=== PATIENT | male | born 1970 | race Caucasian/White ===

== ENCOUNTER 2018-11-05 11:15 | Observation (INO) ==
--- NOTE | 2018-11-05 11:37 | Emergency Department Note ---
ED Disposition Clinical Impression: Abdominal pain Disposition: Admitted as Observation Condition on Discharge: Fair Instructions: DI for Acute Abdomen Referrals: Provider,MD Gala [Primary Care Provider] - Donnie Lange MD [Staff Physician] - Eugenio Kwan MD [Staff Physician] - Time of Disposition: 14:26 - Critical Care Critical Care Time: No Attestation: On 11/05/18, the high probability of a clinically significant, sudden or life threatening deterioration of the following system(s) required my full and direct attention, intervention and personal management. The time I documented below is in addition to time spent performing reported procedures but includes the following listed in this critical care notation. Medical Decision Making - Medical Records Medical records reviewed: Yes: I reviewed the patient's medical records. - [place] Inquiry Pt receiving controlled substance: No Vital Signs: 11/05/18 11:16 11/05/18 12:02 Temperature 98.3 F Temperature Source Oral Pulse Rate [Right Brachial] 86 86 Respiratory Rate 21 Blood Pressure [Right Arm] 133/79 128/80 Blood Pressure Mean [Right Arm] 97 96 Blood Pressure Source [Right Arm] Automatic Cuff Automatic Cuff Blood Pressure Position [Right Arm] Supine Left Lateral 02 Sat by Pulse Oximetry 99 97 Oxygen Delivery Method Room Air Nasal Cannula - Lab Data Lab results reviewed: Yes: I reviewed the patient's lab results. Lab Results 11/05/18 11:35: WBC 11.5 H, RBC 4.97, Hgb 15.8, Hct 48.0, MCV 96.5 H, MCH 31.9 H , MCHC 33.0, RDW 13.5, Plt Count 237, MPV 7.7, Neut % (Auto) 69.9, Lymph % (Auto) 24.1, [place] % (Auto) 5.0, Eos % (Auto) 0.6, Baso % (Auto) 0.5, Neut # (Auto) 8.0 H, Lymph # (Auto) 2.8, [place] # (Auto) 0.6, Eos # (Auto) 0.1, Baso # (Auto) 0.1 11/05/18 11:35: Sodium 138, Potassium 3.7, Chloride 100, Carbon Dioxide 29, Anion Gap 8.7, BUN 14, Creatinine 1.03, Estimated Creat Clear 91, Estimated GFR 77, Est GFR ( Amer) 94, Glucose 117 H, Calcium 9.5, Troponin I < 0.02 11/05/18 11:35: Amylase 50 11/05/18 11:35: Lipase 94 11/05/18 11:35: Total Bilirubin 0.4, Direct Bilirubin 0.1, Indirect Bilirubin 0.3, AST 17, ALT 28, Alkaline Phosphatase 74, Total Protein 7.5, Albumin 4.3 Result diagrams: 11/05/18 11:35 11/05/18 11:35 Orders (Tests/Meds): ED MEDICATIONS Discontinued Medications Generic Name Dose Route Start Last Admin Trade Name Marisa PRN Reason Stop Dose Admin Iopamidol 75 ml 11/05/18 12:40 11/05/18 12:41 [id number]; 75ml Vial IV 11/05/18 12:41 75 ml ONCE ONE Administration Protocol Ketorolac Tromethamine 30 mg 11/05/18 11:27 11/05/18 11:50 Toradol 30mg/Ml Vial IV 11/05/18 11:28 30 mg ONCE ONE Administration Lorazepam 2 mg 11/05/18 11:27 11/05/18 11:50 Ativan 2mg/Ml Vial IV 11/05/18 11:28 2 mg ONCE ONE Administration Pantoprazole Sodium 40 mg 11/05/18 11:28 11/05/18 11:50 Protonix 40mg Vial IV 11/05/18 11:29 40 mg ONCE ONE Administration Sodium Chloride 8 ml 11/05/18 11:28 11/05/18 11:50 Saline Flush 10ml Syringe IV 11/05/18 11:29 8 ml ONCE ONE Administration Sodium Chloride 10 ml 11/05/18 12:40 11/05/18 12:41 Rad-Saline Flush 10ml Syringe IV 11/05/18 12:41 10 ml ONCE ONE Administration ORDERS Category Date Time Status UA [Urinalysis and Microscopic] Stat Lab 11/05/18 11:26 Ordered - ECG Data Tracing #1 Normal sinus rhythm heart rate 97 significant artifact axis 79 possible right atrial enlargement no previous EKG performed 1120 ECG initial impression date: 11/05/18 ECG initial impression time: 11:20 Normal Sinus Rhythm: Yes - Reevaluation(s) Time: 13:05 Reevaluation #1: Patient's pain significantly improved with Toradol laboratory studies unremarka ble CT scan of the abdomen shows anatomical abnormalities of the vessels but no acute ischemic bowel Medical Decision Narrative: Differential diagnosis is ventral hernia, pancreatitis, cholecystitis renal colic, bowel obstruction, aortic dissection Patient reevaluated at 1330 with significant improvement in pain CAT scan of the abdomen with contrast reveals no acute process however 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 Schulz and with the surgeon on-call who will come and see the patient. Patient discussed with Dr. Kwan who recommended admission for observation for 24 hours clear liquid fluids no acute intervention indicated patient will be admitted to Dr. Lange General Adult HPI - General Chief complaint: Abdominal Pain Stated complaint: chest pain Time Seen by Provider: 11/05/18 11:20 Mode of Arrival: Ambulatory Source of Information: Patient, Spouse Limitations: No Limitations - History of Present Illness HPI narrative: Patient complains of acute epigastric pain starting at 4:00 this morning and getting progressively worse pain is constant sharp and is not alleviated by laying still or by movement it can be reproduced by touching the epigastric area. Patient drinks occasionally no history of gallbladder disease gastritis hernias. No history of trauma heavy lifting or previous history. Patient had history of spontaneous pneumothorax in the past Onset (ago): hour(s) (7) Radiation: non-radiation Severity scale (1-10): 8 Quality: sharp - Related Data Home Medications Medication Instructions Recorded Confirmed No Known Home Medications 11/05/18 11/05/18 Allergies Allergy/AdvReac Type Severity Reaction Status Date / Time No Known Allergies Allergy Verified 11/05/18 11:42 [facility] History - Hepatitis A Screen Drug use history?: No High risk sexual behaviors?: No History of sexually transmitted infection?: No Currently employed?: Yes Do you have electricity?: Yes Does patient agree to Hepatitis A vaccine administration?: No Attestation statement:: This patient has been screened for Hepatitis A risk factors. I have reviewed the patient's past medical history: Yes Comment: Right-sided pneumothorax spontaneous Amputation: No ROS Obtained: Yes All systems reviewed & no additional complaints Physical Exam - General General appearance: alert, anxious, in distress (Marked epigastric pain patient cannot get comfortable) - Head Head exam: atraumatic, normocephalic, normal inspection - Eye Eye exam: Present: normal appearance, PERRL, EOMI - ENT ENT exam: Present: normal exam, normal oropharynx, mucous membranes moist, TM's normal bilaterally, normal external ear exam - Neck Neck exam: Present: normal inspection, full ROM, trachea midline. Absent: meningismus, lymphadenopathy - Chest Chest inspection: Present: normal inspection, symmetric chest wall rise. Absent: tenderness - Respiratory Respiratory exam: Present: normal lung sounds bilaterally. Absent: respiratory distress - Cardiovascular Cardiovascular exam: Present: regular rate, normal rhythm. Absent: JVD - Abdominal Exam Abdominal exam: Present: soft, tenderness, guarding, normal bowel sounds. Absent: distention, rebound, rigidity (Exquisite tenderness over epigastrium midline over the linea alba possible ventral hernia palpated pain reproduced by palpation of the abdominal wall) Abdominal tenderness: Present: epigastrium - Extremities Exam Extremities exam: Present: normal inspection, full ROM, normal capillary refill. Absent: calf tenderness - Back Exam Back exam: Present: normal inspection. Absent: tenderness - Neurological Exam Neurological exam: Present: alert, oriented X3 - Psychiatric Psychiatric exam: Present: normal affect, normal mood - Skin Skin exam: Present: warm, dry, intact, normal color - Lymphatic Lymphatic Findings: no adenopathy
[2018-11-05 11:51] LABS: Basophils # 0.1 K/mm3 (0-0.2); Basophils % 0.5 % (0.1-2.0); Eosinophils # 0.1 K/mm3 (0.0-0.4); Eosinophils % 0.6 % (0.1-12.0); Hemoglobin 15.8 g/dL (14.1-18.0); Lymphocytes # 2.8 K/mm3 (0.7-4.5); Lymphocytes % 24.1 % (10-50); Mean Corpuscular Hemoglobin 31.9 pg (27.0-31.2); Mean Corpuscular Volume 96.5 fl (80-94); Mean Platelet Volume 7.7 fl (7.4-10.4); Monocytes # 0.6 K/mm3 (0.1-1.0); Neutrophils % 69.9 % (37.0-80.0); Platelet Count 237 K/mm3 (142-424); Red Blood Count 4.97 M/mm3 (4.60-6.20); Red Cell Distribution Width 13.5 % (11.5-17.5); White Blood Count 11.5 K/mm3 (4.8-10.8)
[2018-11-05 12:01] LABS: Anion Gap 8.7 mEq/L (5-15); Blood Urea Nitrogen 14 mg/dL (7-18); Carbon Dioxide 29 mmol/L (21.0-32.0); Chloride 100 mmol/L (98-107); Potassium 3.7 mmoL/L (3.5-5.1); Sodium 138 mmol/L (136-145)
[2018-11-05 12:02] LABS: Albumin Level 4.3 gm/dL (3.4-5.0); Bilirubin,Direct 0.1 mg/dL (0.0-0.2); Bilirubin,Indirect 0.3 mg/dL (0.0-0.9); Bilirubin,Total 0.4 mg/dL (0.2-1.0); Calcium 9.5 mg/dL (8.5-10.1); Glucose 117 mg/dL (74-106); Total Protein,Serum 7.5 gm/dL (6.4-8.2)
[2018-11-05 14:45] LABS: Microscopic, Urine URINE MICROSCOPIC (MICROSCOPIC)
[2018-11-05 14:48] LABS: Appearance,Urine CLEAR (Clear); Bilirubin,Urine Negative (Negative); Blood, Urine Negative (Negative); Color,Urine YELLOW (Yellow); Glucose,Urine (UA) Negative (Negative); Ketones,Urine Negative (Negative); Leukocyte Esterase,Urine Negative (Negative); Protein,Urine Negative (Negative); Specific Gravity, Urine <= 1.005 (1.005-1.030); Urobilinogen,Urine 0.2 EU/dl (0.2)
[2018-11-05 14:57] LABS: Squamous Epithelial Cell,Urine Occasional #/hpf (0-5)
--- NOTE | 2018-11-05 15:12 | Consult Report ---
*Admission Date: 11/05/18 *Chief complaint: Abdominal pain *History of present illness: Patient is a 48-year-old white male. He states that he was in his usual state of health until early this morning around 4 or 5 AM at which time he developed severe epigastric pain. It became quite severe. He had no other associated symptoms. His symptoms seem to be worse with certain movement. When he presented to the emergency department due to severity of the pain initially there was concern for quite severe pathology. He did undergo CT scan with intravenous contrast. 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 There is no evidence of any mesenteric ischemia noted radiographically. Due to the severity of the pain findings on CT scan general surgery was asked to evaluate the patient. Review of Systems - Review of Systems Review of systems:: pertinent systems reviewed and negative unless documented below [facility] History Medical History: Denies:: Cancer, Diabetes Mellitus Type 1, Diabetes Mellitus Type 2 Have you received a flu vaccine this season?: No Laterality Cases: Left: Other Amputation: No - *Social History Smoking Status: Current every day smoker Tobacco Type: cigarettes # Packs/Day (cigarettes): 1 Alcohol Intake: current Alcohol Intake Frequency:: a few times a month Occupational Status: employed Travel in the last 8 weeks: None - Psychiatric History Expresses thoughts of harming self/others: None Suicide Plan Description: No Plan Meds Home Medications Medication Instructions Recorded Confirmed Type No Known Home Medications 11/05/18 11/05/18 History Allergies Allergy/AdvReac Type Severity Reaction Status Date / Time No Known Allergies Allergy Verified 11/05/18 11:42 Exam Vital signs and Labs for Last 24 Hours: Temp Pulse Resp BP Pulse Ox 98.8 F 90 21 111/61 97 11/05/18 14:51 11/05/18 14:51 11/05/18 11:16 11/05/18 14:51 11/05/18 14:51 Laboratory Results - last 24 hr 11/05/18 11:35: WBC 11.5 H, RBC 4.97, Hgb 15.8, Hct 48.0, MCV 96.5 H, MCH 31.9 H , MCHC 33.0, RDW 13.5, Plt Count 237, MPV 7.7, Neut % (Auto) 69.9, Lymph % (Auto) 24.1, [place] % (Auto) 5.0, Eos % (Auto) 0.6, Baso % (Auto) 0.5, Neut # (Auto) 8.0 H, Lymph # (Auto) 2.8, [place] # (Auto) 0.6, Eos # (Auto) 0.1, Baso # (Auto) 0.1 11/05/18 11:35: Sodium 138, Potassium 3.7, Chloride 100, Carbon Dioxide 29, Anion Gap 8.7, BUN 14, Creatinine 1.03, Estimated Creat Clear 91, Estimated GFR 77, Est GFR ( Amer) 94, Glucose 117 H, Calcium 9.5, Troponin I < 0.02 11/05/18 11:35: Amylase 50 11/05/18 11:35: Lipase 94 11/05/18 11:35: Total Bilirubin 0.4, Direct Bilirubin 0.1, Indirect Bilirubin 0.3, AST 17, ALT 28, Alkaline Phosphatase 74, Total Protein 7.5, Albumin 4.3 11/05/18 14:41: Urine Color Yellow, Urine Appearance Clear, Urine pH 7.0, Ur Specific [place] <= 1.005, Urine Protein Negative, Urine Glucose (UA) Negative, Urine Ketones Negative, Urine Blood Negative, Urine Nitrate Negative, Urine Bilirubin Negative, Urine Urobilinogen 0.2, Ur Leukocyte Esterase Negative, Ur Squamous Epith Cells Occasional I & O for Last 24 hours: Intake & Output 11/03/18 11/04/18 11/05/18 11/06/18 11:59 11:59 11:59 11:59 Weight 160 lb - *Routine HEENT Exam Head: Present: normocephalic Eye: Present: EOMI, PERRL ENT: Present: mucous membranes moist - *Routine Neck Exam Present: supple. Absent: lymphadenopathy - *Routine Respiratory Exam Present: CTA bilaterally - *Routine Cardiovascular Exam Present: RRR - *Routine Abdominal Exam Present: soft, normoactive bowel sounds, tenderness Comments: Very minimal epigastric tenderness without guarding or rebound. - *Routine Extremities Exam Absent: cyanosis, clubbing, edema - *Routine Skin Exam Present: warm. Absent: rash - *Routine Neurological Exam Present: alert, oriented X3 - Detailed Eye Exam Eyelids: Left normal inspection Results - Labs 11/05/18 11:35 11/05/18 11:35 Laboratory Results - last 24 hr 11/05/18 11:35: WBC 11.5 H, RBC 4.97, Hgb 15.8, Hct 48.0, MCV 96.5 H, MCH 31.9 H , MCHC 33.0, RDW 13.5, Plt Count 237, MPV 7.7, Neut % (Auto) 69.9, Lymph % (Auto) 24.1, [place] % (Auto) 5.0, Eos % (Auto) 0.6, Baso % (Auto) 0.5, Neut # ( Auto) 8.0 H, Lymph # (Auto) 2.8, [place] # (Auto) 0.6, Eos # (Auto) 0.1, Baso # (Auto) 0.1 11/05/18 11:35: Sodium 138, Potassium 3.7, Chloride 100, Carbon Dioxide 29, Anion Gap 8.7, BUN 14, Creatinine 1.03, Estimated Creat Clear 91, Estimated GFR 77, Est GFR ( Amer) 94, Glucose 117 H, Calcium 9.5, Troponin I < 0.02 11/05/18 11:35: Amylase 50 11/05/18 11:35: Lipase 94 11/05/18 11:35: Total Bilirubin 0.4, Direct Bilirubin 0.1, Indirect Bilirubin 0.3, AST 17, ALT 28, Alkaline Phosphatase 74, Total Protein 7.5, Albumin 4.3 11/05/18 14:41: Urine Color Yellow, Urine Appearance Clear, Urine pH 7.0, Ur Specific [place] <= 1.005, Urine Protein Negative, Urine Glucose (UA) Negative, Urine Ketones Negative, Urine Blood Negative, Urine Nitrate Negative, Urine Bilirubin Negative, Urine Urobilinogen 0.2, Ur Leukocyte Esterase Negative, Ur Squamous Epith Cells Occasional Assessment and Plan - Assessment and plan all Dx Assessment and Plan for all problems:: I had a long discussion with the patient and his spouse in the emergency department. My suspicion for any acute mesenteric ischemia would be extremely low. I feel more likely that this is an anatomic variant which is a chronic and incidental finding on his CT scan. However, given these findings and given the degree of the pain and tenderness the patient had initially I felt that a viable option may be observation overnight. Patient and his spouse feel more comfortable with this plan as opposed to outpatient management.
--- NOTE | 2018-11-05 17:10 | History & Physical Report ---
*Admission Date: 11/05/18 *Chief complaint: Abdominal pain *History of present illness: 48-year-old male developed epigastric abdominal pain around 5 AM this morning. Patient was able to continue on and go to work. He initially thought he had perhaps pulled a muscle. The pain did not stop him from eating. As his morning progressed the pain intensified until he ultimately presented to the emergency department in the late morning. Currently by the time he arrived to the ER he was in quite severe distress in examination was even difficult. Patient was given Toradol and Ativan in his pain ultimately resolved. A CT scan of the abdomen was performed which showed mild gastric artery and celiac artery narrowing. Surgeon was consulted and recommended overnight observation for recurrence of symptoms. Since admission to the floor patient has been eating and has had no recurrence of pain. He denies use of NSAIDs or smokeless tobacco. He does smoke cigarettes and marijuana. He denies any recent changes in his diet. He denies chest pain, heartburn, nausea, vomiting. When patient had onset of abdominal pain earlier in the morning he attempted to have a bowel movement and made recurrent efforts to belch as he thought these may relieve his pain but those measures were ineffective [facility] History I have reviewed the patient's past medical history: Yes Medical History: Denies:: Cancer, Diabetes Mellitus Type 1, Diabetes Mellitus Type 2, Internal Pacemaker, MRSA Have you ever received a pneumonia vaccine?: No Have you received a flu vaccine this season?: No Laterality Cases: Left: Other Other Surgeries: No: Pacemaker Amputation: No Fractures: No - *Social History Educational Level: Completed [employer] Smoking Status: Current every day smoker Tobacco Type: cigarettes # Packs/Day (cigarettes): 1 #Yrs smoked (if former smoker): 30 Alcohol Intake: current Alcohol Intake Frequency:: holidays/special occasions only Substance Use Type: marijuana Last Used Substance: hours (ago) Occupational Status: employed Travel in the last 8 weeks: None - Psychiatric History Expresses thoughts of harming self/others: None Suicide Plan Description: No Plan Review of Systems - Review of Systems Review of systems:: pertinent systems reviewed and negative unless documented below - Constitutional Denies chills, Denies fever(s) - *Cardiovascular Denies chest pain - *Respiratory Denies change in phlegm color, Denies chest congestion, Denies cough - *Gastrointestinal Reports abdominal pain, Denies belching, Denies bloating, Denies change in bowel habits, Denies change in stools, Denies coffee ground vomit, Denies loose stools, Denies heartburn, Denies difficulty swallowing, Denies feeling full early, Denies excessive passing of gas, Denies incontinent of stools, Denies heartburn, Denies vomiting blood, Denies bright, red blood in stools, Denies loose stools, Denies black, tarry stools, Denies nausea, Denies pain with swallowing, Denies constant urge to pass stool, Denies vomiting - *Genitourinary Denies difficulty urinating - *Neurologic Reports abnormal walking Meds Home Medications Medication Instructions Recorded Confirmed Type No Known Home Medications 11/05/18 11/05/18 History Allergies Allergy/AdvReac Type Severity Reaction Status Date / Time No Known Allergies Allergy Verified 11/05/18 11:42 Exam Vital signs and Labs for Last 24 Hours: Temp Pulse Resp BP Pulse Ox 98.6 F 77 18 117/70 100 11/05/18 16:00 11/05/18 16:00 11/05/18 16:00 11/05/18 16:00 11/05/18 16:56 Laboratory Results - last 24 hr 11/05/18 11:35: WBC 11.5 H, RBC 4.97, Hgb 15.8, Hct 48.0, MCV 96.5 H, MCH 31.9 H , MCHC 33.0, RDW 13.5, Plt Count 237, MPV 7.7, Neut % (Auto) 69.9, Lymph % (Auto) 24.1, [place] % (Auto) 5.0, Eos % (Auto) 0.6, Baso % (Auto) 0.5, Neut # (Auto) 8.0 H, Lymph # (Auto) 2.8, [place] # (Auto) 0.6, Eos # (Auto) 0.1, Baso # (Auto) 0.1 11/05/18 11:35: Sodium 138, Potassium 3.7, Chloride 100, Carbon Dioxide 29, Anion Gap 8.7, BUN 14, Creatinine 1.03, Estimated Creat Clear 91, Estimated GFR 77, Est GFR ( Amer) 94, Glucose 117 H, Calcium 9.5, Troponin I < 0.02 11/05/18 11:35: Amylase 50 11/05/18 11:35: Lipase 94 11/05/18 11:35: Total Bilirubin 0.4, Direct Bilirubin 0.1, Indirect Bilirubin 0.3, AST 17, ALT 28, Alkaline Phosphatase 74, Total Protein 7.5, Albumin 4.3 11/05/18 14:41: Urine Color Yellow, Urine Appearance Clear, Urine pH 7.0, Ur Specific [place] <= 1.005, Urine Protein Negative, Urine Glucose (UA) Negative, Urine Ketones Negative, Urine Blood Negative, Urine Nitrate Negative, Urine Bilirubin Negative, Urine Urobilinogen 0.2, Ur Leukocyte Esterase Negative, Ur Squamous Epith Cells Occasional I & O for Last 24 hours: Intake & Output 11/03/18 11/04/18 11/05/18 11/06/18 11:59 11:59 11:59 11:59 Weight 160 lb 148 lb 3 oz - Constitutional no acute distress - *Routine HEENT Exam Head: Present: normocephalic Eye: Present: PERRL ENT: Present: mucous membranes moist - *Routine Neck Exam Present: supple, full ROM. Absent: JVD, carotid bruit - *Routine Respiratory Exam Present: CTA bilaterally - *Routine Cardiovascular Exam Present: RRR, Normal S1, Normal S2 - *Routine Abdominal Exam Present: soft, normoactive bowel sounds. Absent: tenderness, distended, rebound, guarding, firm, rigid, organomegaly, mass, hernia, bruit, surgical scars, wound, drain, ostomy, [place] Brandt's sign, [place]'s sign - *Routine Extremities Exam Present: full ROM. Absent: edema Assessment and Plan (1) Epigastric abdominal pain Current visit: Yes Status: Acute Category: Medical Code(s): R10.13 - Epigastric pain - Assessment and plan all Dx Assessment and Plan for all problems:: Patient has been admitted for observation and reexamination in the morning. Diet has been ordered.
--- NOTE | 2018-11-06 06:59 | Discharge Summary ---
General - General Admission date:: 11/05/18 Discharge date: 11/06/18 HPI HPI: 48-year-old male developed epigastric abdominal pain around 5 AM this morning. Patient was able to continue on and go to work. He initially thought he had perhaps pulled a muscle. The pain did not stop him from eating. As his morning progressed the pain intensified until he ultimately presented to the emergency department in the late morning. Currently by the time he arrived to the ER he was in quite severe distress in examination was even difficult. Patient was given Toradol and Ativan in his pain ultimately resolved. A CT scan of the abdomen was performed which showed mild gastric artery and celiac artery narrowing. Surgeon was consulted and recommended overnight observation for recurrence of symptoms. Since admission to the floor patient has been eating and has had no recurrence of pain. He denies use of NSAIDs or smokeless tobacco. He does smoke cigarettes and marijuana. He denies any recent changes in his diet. He denies chest pain, heartburn, nausea, vomiting. When patient had onset of abdominal pain earlier in the morning he attempted to have a bowel movement and made recurrent efforts to belch as he thought these may relieve his pain but those measures were ineffective Hospital Course Hospital Course: Patient was admitted for observation. He required no further pain medication nor lorazepam. He ate without recurrence of pain or nausea. Patient slept well and was discharged home on the morning of November 06 patient will follow-up on an as-needed basis. Objective Vital signs: Temp Pulse Resp BP Pulse Ox 99.2 F 81 18 103/56 L 99 11/06/18 04:00 11/06/18 04:00 11/06/18 04:00 11/06/18 04:00 11/06/18 04:00 no acute distress - *Routine Abdominal Exam Present: soft, normoactive bowel sounds. Absent: tenderness Results Labs on day of discharge: Labs from last 24 hours 11/05/18 11/05/18 11/05/18 14:41 11:35 11:35 WBC RBC Hgb Hct MCV MCH MCHC RDW Plt Count MPV Neut % (Auto) Lymph % (Auto) [place] % (Auto) Eos % (Auto) Baso % (Auto) Neut # (Auto) Lymph # (Auto) [place] # (Auto) Eos # (Auto) Baso # (Auto) Sodium Potassium Chloride Carbon Dioxide Anion Gap BUN Creatinine Estimated Creat Clear Estimated GFR Est GFR ( Amer) Glucose Calcium Total Bilirubin 0.4 Direct Bilirubin 0.1 Indirect Bilirubin 0.3 AST 17 ALT 28 Alkaline Phosphatase 74 Troponin I Total Protein 7.5 Albumin 4.3 Amylase Lipase 94 Urine Color Yellow Urine Appearance Clear Urine pH 7.0 Ur Specific [place] <= 1.005 Urine Protein Negative Urine Glucose (UA) Negative Urine Ketones Negative Urine Blood Negative Urine Nitrate Negative Urine Bilirubin Negative Urine Urobilinogen 0.2 Ur Leukocyte Esterase Negative Ur Squamous Epith Cells Occasional 11/05/18 11/05/18 11/05/18 11:35 11:35 11:35 WBC 11.5 H RBC 4.97 Hgb 15.8 Hct 48.0 MCV 96.5 H MCH 31.9 H MCHC 33.0 RDW 13.5 Plt Count 237 MPV 7.7 Neut % (Auto) 69.9 Lymph % (Auto) 24.1 [place] % (Auto) 5.0 Eos % (Auto) 0.6 Baso % (Auto) 0.5 Neut # (Auto) 8.0 H Lymph # (Auto) 2.8 [place] # (Auto) 0.6 Eos # (Auto) 0.1 Baso # (Auto) 0.1 Sodium 138 Potassium 3.7 Chloride 100 Carbon Dioxide 29 Anion Gap 8.7 BUN 14 Creatinine 1.03 Estimated Creat Clear 91 Estimated GFR 77 Est GFR ( Amer) 94 Glucose 117 H Calcium 9.5 Total Bilirubin Direct Bilirubin Indirect Bilirubin AST ALT Alkaline Phosphatase Troponin I < 0.02 Total Protein Albumin Amylase 50 Lipase Urine Color Urine Appearance Urine pH Ur Specific [place] Urine Protein Urine Glucose (UA) Urine Ketones Urine Blood Urine Nitrate Urine Bilirubin Urine Urobilinogen Ur Leukocyte Esterase Ur Squamous Epith Cells DS: Diagnosis - Discharge Diagnosis (1) Epigastric abdominal pain Status: Acute Discharge Plan - Patient Discharge Instructions ACTIVITY: Continue current activity DIET: continue same diet - Follow up Plan Disposition: Home, Self-Shelter Medications: Home Medications Medication Instructions Recorded Confirmed Type No Known Home Medications 11/05/18 11/05/18 History Prescriptions/Medication Reconciliation: No Action No Known Home Medications
--- NOTE | 2018-11-06 07:13 | Pharmacy Consult Notes ---
[facility] Pharmacy VTE Monitoring - Patient Demographics Admission date: 11/05/18 Report Date: 11/06/18 Time: 07:13 Allergies/Adverse Reactions: Patient Allergies No Known Allergies Allergy (Verified 11/05/18 11:42) Height: 1.83 m Weight: 67.217 kg Patient Problems: Current Active Problems Abdominal pain (Acute) Epigastric abdominal pain (Acute) - VTE Risk Labs: VTE Related Lab Results Hgb 15.8 g/dL (14.1-18.0) 11/05/18 11:35 Hct 48.0 % (42.0-52.0) 11/05/18 11:35 Plt Count 237 K/mm3 (142-424) 11/05/18 11:35 BUN 14 mg/dL (7-18) 11/05/18 11:35 Creatinine 1.03 mg/dL (0.70-1.30) 11/05/18 11:35 Estimated Creat Clear 91 mL/min (50-200) 11/05/18 11:35 Was VTE Risk Assessment Performed: Yes VTE Score: 1 VTE Risk Level: Low Risk Clinical Trial Participant: No - Prophylaxis Types of VTE Prophylaxis: TEDS Knee High
--- NOTE | 2018-11-06 07:17 | Progress Note ---
Subjective Patient reports: feels better Narrative: Patient states he is "ready to go home". No pain overnight. Exam Vital signs and Labs for Last 24 Hours: Temp Pulse Resp BP Pulse Ox 99.2 F 81 18 103/56 L 99 11/06/18 04:00 11/06/18 04:00 11/06/18 04:00 11/06/18 04:00 11/06/18 04:00 Laboratory Results - last 24 hr 11/05/18 11:35: WBC 11.5 H, RBC 4.97, Hgb 15.8, Hct 48.0, MCV 96.5 H, MCH 31.9 H , MCHC 33.0, RDW 13.5, Plt Count 237, MPV 7.7, Neut % (Auto) 69.9, Lymph % (Auto) 24.1, [place] % (Auto) 5.0, Eos % (Auto) 0.6, Baso % (Auto) 0.5, Neut # (Auto) 8.0 H, Lymph # (Auto) 2.8, [place] # (Auto) 0.6, Eos # (Auto) 0.1, Baso # (Auto) 0.1 11/05/18 11:35: Sodium 138, Potassium 3.7, Chloride 100, Carbon Dioxide 29, Anion Gap 8.7, BUN 14, Creatinine 1.03, Estimated Creat Clear 91, Estimated GFR 77, Est GFR ( Amer) 94, Glucose 117 H, Calcium 9.5, Troponin I < 0.02 11/05/18 11:35: Amylase 50 11/05/18 11:35: Lipase 94 11/05/18 11:35: Total Bilirubin 0.4, Direct Bilirubin 0.1, Indirect Bilirubin 0.3, AST 17, ALT 28, Alkaline Phosphatase 74, Total Protein 7.5, Albumin 4.3 11/05/18 14:41: Urine Color Yellow, Urine Appearance Clear, Urine pH 7.0, Ur Specific [place] <= 1.005, Urine Protein Negative, Urine Glucose (UA) Negative, Urine Ketones Negative, Urine Blood Negative, Urine Nitrate Negative, Urine Bilirubin Negative, Urine Urobilinogen 0.2, Ur Leukocyte Esterase Negative, Ur Squamous Epith Cells Occasional I & O for Last 24 hours: Intake & Output 11/03/18 11/04/18 11/05/18 11/06/18 11:59 11:59 11:59 11:59 Intake Total 360 / 360 Balance 360 / 360 Weight 160 lb 148 lb 3 oz - Constitutional no acute distress - *Routine Abdominal Exam Present: soft. Absent: tenderness Progress Note: A&P (1) Epigastric abdominal pain Status: Acute Current Visit: Yes Assessment and Plan for All Diagnoses:: Discharge home.
== END 2018-11-06 07:55 | disposition home or self-care (01) ==
LOC: 2ND 11:15 → ER 11:15 → 2ND 15:35
PROVIDERS: ADMIT Family Medicine; ATTEND Family Medicine
CPT/HCPCS: 74160; 80048; 80076; 81001; 82150; 83690; 84484; 85025; 93005; 96374; 96375; 99284; G0378; Q9967

== ENCOUNTER → 2018-11-21 13:32 | Outpatient (CLI) | payer BC, SELFPAY ==
--- NOTE | 2018-11-21 13:47 | XR_ITS ---
EXAM: XR lumbar spine min 4V HISTORY: Left hip and back pain ORDERING PHYSICIAN: Samantha Alcala PATIENT AGE: 48 years COMPARISON: None FINDINGS: Normal alignment. No fracture or dislocation. No lytic or blastic change. No significant degenerative change. The disc spaces are preserved. IMPRESSION: Negative lumbar spine
--- NOTE | 2018-11-21 13:47 | XR_ITS ---
XR hip LT 2-3V w/pelvis HISTORY: Left hip and back pain ORDERING PHYSICIAN: Samantha Alcala PATIENT AGE: 48 years COMPARISON: None FINDINGS: No fracture or dislocation is evident. No significant degenerative change. No lytic or blastic change. Unremarkable soft tissues IMPRESSION: Negative hip
== END ==
PROVIDERS: PCP Family Medicine; Visit Provider Nurse Practitioner
DX: M48.9 Spondylopathy, unspecified (principal)
CPT/HCPCS: 72110; 73502

== ENCOUNTER → 2019-01-29 15:12 | Outpatient (CLI) | payer BC, SELFPAY ==
--- NOTE | 2019-01-29 15:15 | MR_ITS ---
MR hip LT wo con HISTORY: Left hip pain ITS.REASON: LEFT HIP PAIN, INSTABILITY OF LEFT HIP JOINT ORDERING PHYSICIAN: Nolvia Morris APRN PATIENT AGE: 48 years COMPARISON: 11/21/2018 TECHNIQUE: Multiplanar multiecho sequences performed without contrast FINDINGS: No fracture or dislocation. No bone marrow edema of the hip. No hip joint effusion. No significant degenerative change. The soft tissues about the hip have an unremarkable appearance. IMPRESSION: Negative MRI of the left hip
== END ==
PROVIDERS: PCP Nurse Practitioner Family; Visit Provider Nurse Practitioner Family
DX: M25.552 Pain in left hip (principal); M25.352 Other instability, left hip
CPT/HCPCS: 73721

== ENCOUNTER 2019-02-26 08:30 | Outpatient (RCR) | payer BC, SELFPAY ==
--- NOTE | 2019-02-11 11:11 | HMH.PTOPEV ---
PT Outpatient Evaluation Rehab PT Outpatient Evaluation Start: 02/11/19 09:51 Freq: Status: Active Protocol: Document 02/11/19 10:48 SINDY (Rec: 02/11/19 11:11 PHORNE [id number]) Electronically Signed By Ivan Ibrahim, PT 02/11/19 10:48 Outpatient Therapy Subjective History Subjective History Pt is 48 yowm who presents with ~ 4 mos of low back pain and left LE radicular symptoms , fairly constant with no relief from any medications he has been prescribed. He reports ~ 20 yrs of similar episodes of low back pain and radiculopathy, but none this severe. He had X-ray and MRI of left hip which were negative and X-ray of the lumbar spine which was negative. He reports no significant PMH. 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 Chief Complaint Pain Symptom Type Ache,Throb,Sharp,Dull,Stabbing ,Burning,Numbness,Tingling, Shooting Symptoms Relieved By Nothing Symptoms Aggravated By Sitting,Standing,Bending/ Stooping,Physical Activity, Twisting,Walking,Lifting, Sneeze/Coughing Prior Functional Limitations None Current Functional Limitations Lifting,Housework,Dressing, Driving,Sleeping,Standing, Sitting,Recreation Activity, Walking,Bending/Stooping Symptom Description Constant and Continuous Level of pain today (0-10) 10 Pain scale - at its worst (0-10) 10 Lumbopelvic Eval Posture Thoracic Spine Posture Standing Position Neutral Lumbar Spine Posture Standing Position Neutral Palapation tenderness left lumbar spinal tenderness Yes: mild buttock tenderness Yes: severe Lumbar/Sacral Palpation Findings Tenderness,Muscle Guarding Lumbar/Sacral Palpation Overall Comment Pt with extreme reactions to all palpation throughout left SI/buttock area. Accessory Movement L-spine Vertebrae Accessory Movements [facility] [place] that Elicit Symptoms L4 left L5 left S1 left Range of Motion Lumbar Spin
== END 2019-02-26 08:35 | disposition home or self-care (01) ==
LOC: PT 08:30
PROVIDERS: Visit Provider Nurse Practitioner Family
DX: M54.42 Lumbago with sciatica, left side (principal)
CPT/HCPCS: 97010; 97014; 97035; 97110; 97140; 97163; G0283

== ENCOUNTER → 2019-03-11 15:01 | Outpatient (CLI) | payer BC, SELFPAY ==
--- NOTE | 2019-03-11 15:03 | MR_ITS ---
MR lumbar spine wo con, MR 3-d myelogram/MRCP HISTORY: Low back pain X 6 months or longer. LT leg pain, numbness and tingling. Pain has been severe X 2 months. No known injury. ITS.REASON: ACUTE LEFT-SIDED BACK PAIN WITH SCIATICA, UNABLE TO WALK ORDERING PHYSICIAN: Nolvia Morris APRN PATIENT AGE: 48 years Comparison: X-RAY 11-21-18 TECHNIQUE: Standard multiplanar multiecho sequences are performed without contrast. 3-D MIP and myelographic images are also rendered and reviewed FINDINGS: There is normal alignment. The spinal cord ends at the L1-L2 level. T12-L1, L1-L2, L2-L3, and L3-L4 have an unremarkable appearance. L4-5: There is concentric bulging disc with a small to medium-sized left paracentral and foraminal disc protrusion/herniation causing impingement upon the left L5 nerve root, left lateral recess narrowing, and left-sided foraminal narrowing. L5-S1: Mild bulging disc with mild degenerative disc disease. Mild bilateral foraminal narrowing. IMPRESSION: Mild bulging disc with a small medium sized left paracentral and foraminal disc protrusion/herniation at L4-L5: Left lateral recess narrowing and impingement upon the left L5 nerve root
== END ==
PROVIDERS: PCP Nurse Practitioner Family; Visit Provider Nurse Practitioner Family
DX: M54.42 Lumbago with sciatica, left side (principal); R26.2 Difficulty in walking, not elsewhere classified
CPT/HCPCS: 72148; 76376

== ENCOUNTER → 2020-04-03 10:18 | Outpatient (CLI) | payer BC, SELFPAY ==
--- NOTE | 2020-04-03 10:25 | US_ITS ---
PROCEDURE: US THYROID CLINICAL INDICATION: DIFFICULTY SWALLOWING,ENLARGED THYROID COMPARISON: No exams were available for comparison FINDINGS: Both thyroid glands are normal size and echogenicity. Right lobe: 16 millimeters x 44 millimeters X 11 millimeters Left lobe: 13 millimeters x 44 millimeters x 13 millimeters Isthmus: 3.8 millimeters Additional findings: No abnormal mass lesions IMPRESSION: Negative Dictated by: Ricco Jiang 04/03/2020 11:09 Electronically signed by Ricco Jiang in [place] 04/03/2020 11:09
== END ==
PROVIDERS: PCP Nurse Practitioner; Visit Provider Nurse Practitioner
DX: R13.10 Dysphagia, unspecified (principal); E04.9 Nontoxic goiter, unspecified
CPT/HCPCS: 76536

== ENCOUNTER 2020-05-02 19:21 | Emergency (ER) | payer BC, SELFPAY ==
[2020-05-02 19:39] VITALS: BP 124/78; PULSE 71; RESP 19; TEMP 37.2; O2SAT 98
--- NOTE | 2020-05-02 19:43 | HMH.EDUTC ---
[facility] Disposition Clinical Impression: Encounter for laboratory testing for COVID-19 virus URI (upper respiratory infection) Qualifiers: URI type: unspecified URI Qualified Code(s): J06.9 - Acute upper respiratory infection, unspecified Disposition: Home, Self-Care Condition on Discharge: Good Instructions: Sore Throat, Preventing the Spread of Coronavirus Discharge Instructions Additional Instructions: *Monitor Temp, Over the counter Motrin or Tylenol as directed/as needed Tylenol every 4 hours and Motrin every 6 hours (as long as your family doctor has told you that you can take it) for fever or pain. and straight to ER if unable to lower temp less than 101.0 after medication given *Warm salt water gargles may help to soothe the throat *Throat Lozenges *Warm fluids like tea with honey may help to soothe the throat *Sleep elevated *Humidifier/Vaporizer *You was given handout with instructions for Self Quarantine while you await your test results and if the results are positive Self Isolate, make sure that you follow the instructions to help prevent the spread of COVID19 Call back to [facility] on Monday to see if your test results are back No work until negative test results Your throat swab was sent for culture. Those results are typically sent to your primary care. Be sure to follow up in 2-3 days with your family doctor/primary care physician if no improvement so they can review those result and treat if necessary. If you don?t have a primary care doctor, I recommend you get one but in the mean time, you will have to return to a walk in clinic Follow up IMMEDIATELY for new or worsening symptoms or no Noticeable improvement over the next 48-72 hours. 911 for difficulty breathing or swallowing Prescriptions: Albuterol Sulfate [Proventil-HFA 90mcg/puff Inh] 1 - 2 puffs IH Q4HP PRN #1 inh PRN Reason: Shortness Of Breath Transmission Status: Received by [id number] Azithromycin [Z-Bravo 250mg Tab] 250 mg PO DIRECTED #6 tab Transmission Status: Received by [id number] Referrals: Jessica Cano MD [Primary Care Provider] - As needed Forms: Work/School Release Time of Disposition: 20:02 Medical Decision Making - Albin Inquiry Pt receiving controlled substance: No Albin was queried for this patient: No Vital Signs: 05/02/20 19:39 05/02/20 20:05 Temperature 99 F 98.8 F Temperature Source Oral Oral Pulse Rate 71 Pulse Rate [Right Brachial] 71 Respiratory Rate 19 19 Blood Pressure 124/78 Blood Pressure [Right Arm] 124/78 Blood Pressure Mean [Right Arm] 93 Blood Pressure Source Automatic Cuff Blood Pressure Source [Right Arm] Automatic Cuff Blood Pressure Position Sitting Blood Pressure Position [Right Arm] Sitting 02 Sat by Pulse Oximetry 98 Oxygen Delivery Method Room Air Room Air - Lab Data Lab results reviewed: Yes: I reviewed the patient's lab results. Lab Results 05/02/20 19:28: SARS-CoV-2 (PCR) Not detected 05/02/20 19:56: Strep Scn Rapid Clinic Negative [facility] HPI - General Stated complaint: wants to be test for COVID-19 Time Seen by Provider: 05/02/20 19:43 Mode of Arrival: Ambulatory Source of Information: Patient Limitations: No Limitations Description of Symptoms (Recalled from Triage Doc. by RN): covid testing, cough, sore throat, congestion HEENT Symptoms (Recalled from RN notes): Yes Resp Symptoms (Recalled from RN notes): Yes Skin Symptoms (Recalled from RN notes): No MS Symptoms (Recalled from RN notes): No Functional Status (Recalled from RN notes): none - History of Present Illness Provider Complaint: Patient states that he has been having cough, sore throat and nasal congestion States that he was worried that he may have strep or COVID and wanted to get checked Denies known exposure - Related Data Previous Rx's Medication Instructions Recorded Albuterol Sulfate [Proventil-HFA 1 - 2 puffs IH Q4HP PRN #1 inh 05/02/20 90mcg/puff Inh] Az
[2020-05-02 20:00] LABS: UTC Strep Screen (Rapid) Negative (Negative)
[2020-05-02 20:05] VITALS: BP 124/78; PULSE 71; RESP 19; TEMP 37.1; O2SAT 99
[2020-05-05 06:22] LABS: Covid-19 Nasal PCR Sendout UK NOT DETECTED
== END 2020-05-02 20:05 | disposition home or self-care (01) ==
PROVIDERS: Emergency Provider Nurse Practitioner; PCP Family Medicine
DX: J06.9 Acute upper respiratory infection, unspecified (principal); Z03.818 Encounter for observation for suspected exposure to other biological agents ruled out; F17.210 Nicotine dependence, cigarettes, uncomplicated
CPT/HCPCS: 87880; 99201; 99202; U0003

== ENCOUNTER 2024-08-27 09:18 | Emergency (ER) | payer BC, SELFPAY ==
[2024-08-27 09:19] VITALS: BP 133/82; PULSE 85; RESP 18; TEMP 36.8; O2SAT 95; BMI 20.9
--- NOTE | 2024-08-27 09:38 | ECG_ITS ---
APPROVED REPORT Exam: Resting ECG HR:75 bpm ECG Measurements Heart Rate 75 AXES VT 129 P 73 QRSd 96 QRS 74 QT 363 T 71 QTc 391 Conclusion SINUS RHYTHM NORMAL ECG Electronically signed by : NIKKO LONGORIA, 08/27/2024 15:34:38
--- NOTE | 2024-08-27 09:43 | XR_ITS ---
PROCEDURE INFORMATION: Exam: XR Chest Exam date and time: 08/27/2024 9:39 AM Age: 54 years old Clinical indication: Pain; Left-sided; Additional info: L side chest pain 2w, muscle pain TECHNIQUE: Imaging protocol: Radiologic exam of the chest. Views: 2 views. COMPARISON: ABDW CT abdomen w con 11/05/2018 12:24 PM FINDINGS: Lungs: No evidence of pneumonia or interstitial edema. Pleural spaces: Unremarkable. No pleural effusion. No pneumothorax. Heart/Mediastinum: Unremarkable. No cardiomegaly. Bones/joints: Unremarkable. No visible acute fracture. IMPRESSION: No evidence of pneumonia or interstitial edema.
--- NOTE | 2024-08-27 09:44 | ED_ITS ---
Discharge Plan Disposition Patient Disposition: Home, Self-Care Condition: Good Prescriptions Prescriptions: No Action azithromycin 250 MG tablet 250 mg PO DIRECTED Qty: 6 0RF Rx Instructions: Take two (2) tablets on day #1, then one (1) tablet day #2 thru #5 albuterol sulfate 200 PUFFS HFA aerosol inhaler 1 - 2 puffs IH Q4HP PRN (Reason: Shortness Of Breath) Qty: 1 0RF Referrals Follow up/Referrals: Jessica Cano MD [Primary Care Provider] - See instructions Activity Restrictions/Add. Instructions Additional Instructions/Restrictions: You were evaluated in the ER and are appropriate for discharge at this time. Take Tylenol, ibuprofen if needed for pain, do not exceed the recommended dose on the bottle. Drink water and eat a snack each time you take these medications to avoid side effects. Remove the lidocaine patch at 9 PM tonight Make an appoint with your primary care doctor for reevaluation in a few days. Return to the ER with new, worsening, or otherwise concerning symptoms. Clinical Impressions Clinical Impression: Acute costochondritis, Rib pain on left side Print Language Print Language: Azeri Discharge ED Provider: Manasa Santiago General Adult HPI General Chief complaint: PAIN Stated complaint: pain left arm pit possible pulled muscle Time Seen by Provider: 08/27/24 09:39 Mode of Arrival: Ambulatory Source of Information: Patient Limitations: No Limitations Description of Symptoms (Recalled from ER Triage Doc. by RN): left sided under rib pain x2 weeks. gotten worse the last 4 days, History of Present Illness HPI narrative: 54-year-old male presents to the ER for complaints of left-sided rib pain for the last 2 weeks. 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 He had been off work for over 2-1/2 years after a back surgery. Since going back to work, he is developed this left-sided rib pain that has been gradually but steadily worsening, he especially noticed that in the last 4 days. He states some positions are better than others, but any sort of movement worsens his pain as does coughing. Patient and family at bedside report they wanted to make sure it was not a collapsed lung or a heart problem since he has a history of collapsed lung a few years ago. Patient denies history of cardiac problems. He has not had any other associated symptoms including fevers, chills, nausea, vomiting, sore throat, runny nose, abdominal pain, dysuria, hematuria. He denies any known traumatic injuries. Related Data Previous Rx's ?Medication ?Instructions ?Recorded albuterol sulfate 90 mcg/actuation 1 - 2 puffs IH Q4HP PRN Shortness 05/02/20 aerosol inhaler Of Breath #1 inh azithromycin 250 mg tablet 250 mg PO DIRECTED #6 tabs 05/02/20 Allergies Allergy/AdvReac Type Severity Reaction Status Date / Time No Known Allergies Allergy Verified 05/02/20 19:30 [facility] Disclaimer: The information contained in this section may have been updated after the patient was seen, as this information can be updated by other users. Social History Smoking Status: Current every day smoker tobacco type: cigarettes packs per day: 1 second hand exposure: Yes alcohol intake: never substance use type: marijuana current occupational status: employed Travel in the last 8 weeks: None current occupational exposures/hazards: No caffeine: Yes Other Medical History Have you received the Flu Vaccine for this season: No Have you received the Pneumonia Vaccine: No ROS Obtained: Yes Systems reviewed as appropriate & no additional complaints except as documented ROS per HPI Physical Exam General General appearance: alert and in no apparent distress Comment: Uncomfortable appearing but not in distress Head Head exam: atraumatic and normocephalic Eye Eye exam: Present PERRL and EOMI ENT ENT exam: Present mucous membranes moist Neck Neck exam: Present normal inspection and full ROM Chest Chest inspection: Present symmetric chest wall rise and tenderness (Tenderness of the left chest wall with significant tenderness of the interosseous muscles and latissimus dorsi as well as costochondral junction on the left, no tenderness on the right) Respiratory Respiratory exam: Present normal lung sounds bilaterally; Absent respiratory distress, wheezes or stridor Cardiovascular Cardiovascular exam: Present regular rate and normal rhythm Abdominal Exam Abdominal exam: Present soft; Absent distention or tenderness Extremities Exam Extremities exam: Present full ROM; Absent edema Back Exam Back exam: Absent vertebral tenderness Neurological Exam Neurological exam: Present alert, oriented X3, CN II-XII intact and normal gait; Absent motor sensory deficit Psychiatric Psychiatric exam: Present normal affect and normal mood Skin Skin exam: Present warm and dry Medical Decision Making Medical Records Medical records reviewed: Yes I reviewed the patient's medical records. Screening: Per USPSTF and CDC recommendations, given the prevalence of disease in our region, it is our hospital?s policy to screen for HIV and viral Hepatitis for all patients aged 18 and over and those with ongoing risk factors. MR Comment: Patient has remote history in our system with most recent visit in 2019 where patient was evaluated in [facility] for COVID Albin Inquiry Pt receiving controlled substance: No Vital Signs: 08/27/24 09:19 08/27/24 10:00 08/27/24 10:30 Temperature 98.3 F Temperature Source Oral Pulse Rate 77 85 Pulse Rate [Right] 85 Respiratory Rate 18 Blood Pressure 109/73 L 103/66 L Blood Pressure [Right Arm] 133/82 Blood Pressure Mean [Right Arm] 99 02 Sat by Pulse Oximetry 95 96 97 Oxygen Delivery Method Room Air Room Air Room Air Lab Data Lab Results 08/27/24 10:00: WBC 13.5 H, RBC 4.80, Hgb 15.5, Hct 43.6, MCV 90.8, MCH 32.2 H, MCHC 35.5 H, RDW 13.9, Plt Count 225, MPV 7.6, Neut % (Auto) 73.4, Lymph % (Auto) 19.4, [place] % (Auto) 5.0, Eos % (Auto) 1.2, Baso % (Auto) 1.0, Neut # (Auto) 9.9 H, Lymph # (Auto) 2.6, [place] # (Auto) 0.7, Eos # (Auto) 0.2, Baso # (Auto) 0.1, Sodium 140, Potassium 4.2, Chloride 104, Carbon Dioxide 29, Anion Gap 11.2, BUN 17, Creatinine 1.10, Estimated Creat Clear 77, Estimated GFR 70, Est GFR ( Amer) 85, Glucose 83, Calcium 9.2, Total Bilirubin 0.7, AST 28, ALT 19, Alkaline Phosphatase 73, Troponin I < 0.01, Total Protein 7.3, Albumin 4.7, Globulin 2.6, Albumin/Globulin Ratio 1.8 08/27/24 10:00 08/27/24 10:00 Orders (Tests/Meds): ED MEDICATIONS Discontinued Medications Generic Name Dose Route Start Last Admin Trade Name Freq PRN Reason Stop Dose Admin Ketorolac Tromethamine 30 mg 08/27/24 09:43 08/27/24 10:01 Ketorolac 30mg/Ml Vial IV 08/27/24 09:44 30 mg ONCE ONE Administration Lidocaine 1 each 08/27/24 09:43 08/27/24 10:01 Lidocaine 5% Transdermal Patch TP 08/27/24 09:44 1 each ONCE ONE Administration Methocarbamol 500 mg 08/27/24 09:44 08/27/24 10:01 Methocarbamol 500mg Tablet PO 08/27/24 09:45 500 mg ONCE ONE Administration ORDERS Category Date Time Status CXR 2 view (NOT portable) [XR chest 2V] Stat Exams 08/27/24 09:43 Completed CBC w/Auto Diff [Complete Blood Count Auto Diff] Stat Lab 08/27/24 10:00 Completed CMP [Comprehensive Metabolic Panel] Stat Lab 08/27/24 10:00 Completed HIV (1&2) Antibody Rapid Stat Lab 08/27/24 10:00 Received Hep C Ab with Reflex to RNA Stat Lab 08/27/24 10:00 Received Trop I [Troponin I] Stat Lab 08/27/24 10:00 Completed Troponin I Q3H Lab 08/27/24 12:45 Ordered Troponin I Q3H Lab 08/27/24 15:45 Ordered Medical Decision Narrative: In summary, this 54-year-old male presents to the emergency department today with left-sided chest wall pain for 2 weeks. On initial evaluation patient is hemodynamically stable, afebrile, physical exam is notable for left chest wall tenderness specifically of the interosseous muscles and latissimus dorsi as well as costochondral junction without findings of traumatic injury, benign cardiopulmonary exam. Differential diagnosis includes but is not limited to muscle spasm, pulled muscle, overuse injury, costochondritis, I considered ACS though I have lower suspicion for this given his obvious tenderness of the muscles, also considered pneumothorax since patient does have a history of this and which increases risk of recurrence, however much lower suspicion since patient has equal bilateral breath sounds and reproducible pain without subcutaneous emphysema. Based on these concerns, I ordered cardiac workup, chest x-ray. ECG personally interpreted demonstrates normal sinus rhythm, rate 75, normal axis, normal AR and QTc, no STEMI. Patient received Toradol, methocarbamol, lidocaine patch for treatment of pain. Labs personally reviewed demonstrate no acute actionable abnormalities, undetectable troponin. Significantly reassuring against cardiac pathology given patient's duration of symptoms. Chest x-ray personally interpreted does not demonstrate acute intrathoracic abnormality, see radiology read for final interpretation. On reassessment patient continues to be stable and is appropriate for discharge. Patient was given instructions on symptomatic management, follow up instructions, and return precautions for the emergency department. Patient indicated understanding and was discharged in stable condition. Critical Care Critical Care Time Critical Care Time: No
[2024-08-27 10:00] VITALS: BP 109/73; PULSE 77; O2SAT 96
[2024-08-27] MEDS: KETOROLAC 30MG/ML VIAL 30 MG IV (10:01)
[2024-08-27] MEDS: LIDOCAINE 5% TRANSDERMAL PATCH 1 EACH TP (10:01)
[2024-08-27] MEDS: METHOCARBAMOL 500MG TABLET 500 MG PO (10:01)
[2024-08-27 10:07] LABS: Basophils # 0.1 K/mm3 (0-0.2); Eosinophils # 0.2 K/mm3 (0.0-0.4); Eosinophils % 1.2 % (0.1-12.0); Hematocrit 43.6 % (42.0-52.0); Hemoglobin 15.5 g/dL (14.1-18.0); Lymphocytes # 2.6 K/mm3 (0.7-4.5); Lymphocytes % 19.4 % (10-50); Mean Corpuscular HGB Conc 35.5 g/dL (31.8-35.4); Mean Corpuscular Hemoglobin 32.2 pg (27.0-31.2); Mean Corpuscular Volume 90.8 fl (80-94); Mean Platelet Volume 7.6 fl (7.4-10.4); Monocytes # 0.7 K/mm3 (0.1-1.0); Neutrophils # 9.9 K/mm3 (1.8-7.8); Neutrophils % 73.4 % (37.0-80.0); Platelet Count 225 K/mm3 (142-424); Red Cell Distribution Width 13.9 % (11.5-17.5); White Blood Count 13.5 K/mm3 (4.8-10.8)
[2024-08-27 10:14] LABS: Albumin Level 4.7 g/dl (3.5-5.0); Chloride 104 mmol/L (98-107); Potassium 4.2 mmoL/L (3.5-5.1); Sodium 140 mmol/L (136-145)
[2024-08-27 10:17] LABS: Alanine Aminotransferase 19 U/L (12-78); Albumin/Globulin Ratio 1.8 (1.1-1.8); Alkaline Phosphatase 73 U/L (38-126); Anion Gap 11.2 mEq/L (5-15); Aspartate Amino Transferase 28 U/L (17-59); Bilirubin,Total 0.7 mg/dl (0.2-1.3); Blood Urea Nitrogen 17 mg/dl (9-20); Calcium 9.2 mg/dl (8.4-10.2); Carbon Dioxide 29 mmol/L (22.0-30.0); Creatinine Clearance Estimated 77 mL/min (50-200); Estimated Glomerular Filt Rate 70 ml/min (>60); GFR (African American) 85 ML/MIN (>60); Globulin 2.6 g/dL (1.3-3.2); Glucose 83 mg/dl (74-100); Total Protein,Serum 7.3 g/dl (6.3-8.2)
[2024-08-27 10:30] VITALS: BP 103/66; PULSE 85; O2SAT 97
[2024-08-27 10:30] LABS: Troponin I < 0.01 ng/ml (0.00-0.034)
[2024-08-27 10:46] VITALS: BP 103/66; PULSE 81; RESP 18; TEMP 36.7; O2SAT 97
[2024-08-27 12:58] LABS: HIV (1&2) Antibody Rapid NONREACTIVE (NONREACTIVE)
[2024-08-28 06:16] LABS: HCV Ab Non Reactive (Non Reactive)
== END 2024-08-27 10:50 | disposition home or self-care (01) ==
PROVIDERS: Emergency Provider Emergency Medicine; PCP Family Medicine
DX: M94.0 Chondrocostal junction syndrome [Tietze] (principal); R07.81 Pleurodynia; R07.82 Intercostal pain
CPT/HCPCS: 71046; 80053; 84484; 85025; 86803; 87389; 93005; 96374; 99284; J1885

== ENCOUNTER 2024-10-25 12:10 | Emergency (ER) | payer OTHER, SELFPAY ==
[2024-10-25 12:20] VITALS: BP 117/61; PULSE 82; RESP 17; TEMP 36.8; O2SAT 98; BMI 19.3
--- NOTE | 2024-10-25 12:25 | EXP.UTC ---
Discharge Plan Disposition Patient Disposition: Home, Self-Care Condition: Good Prescriptions Prescriptions: New methylprednisolone 4 mg Tablets,Dose Pack 4 mg PO DIRECTED 6 Days Qty: 21 0RF Rx Instructions: Take 1 pack as directed for 6 days lidocaine 5 % adhesive patch,medicated 1 patch topical DAILY PRN (Reason: chest wall pain) Qty: 15 0RF Rx Instructions: leave on most painful area for up to 12 hrs Referrals Follow up/Referrals: Jessica Cano MD [Primary Care Provider] - See instructions Activity Restrictions/Add. Instructions Additional Instructions/Restrictions: Go home and rest. It would be best if you rested tomorrow too. No heavy lifting & No twisting for the next several days. Don't start the oral steroids (medrol dose pack) until tomorrow, since you had the shots in here today. Follow up with your regular doctor. GO TO THE ER FOR ANY WORSENING SYMPTOMS OR CONCERN, ESPECIALLY BOWEL OR BLADDER ISSUES, SADDLE AREA NUMBNESS, FEVER, ETC Clinical Impressions Clinical Impression: Costochondritis, Pain in right shoulder Stand Alone Forms Stand Alone Forms: Work/School Release Instructions Patient Instructions: Costochondritis, DI for Costochondritis, Ketorolac Injection, Dexamethasone Injection Print Language Print Language: Ukrainian Discharge ED Provider: Allan Sanchez [facility] General Stated complaint: pain in right shoulder and under right arm Time Seen by Provider: 10/25/24 12:24 History of Present Illness Provider Complaint: He states that for the past 3 days he has had right shoulder pain and right rib pain beneath his arm. He denies any injury. He denies chest pain and shortness of breath. He has had episodes of pain like this before and he was diagnosed with costrochrondritis and shoulder tendonopathy. He states that his job is very hard on his shoulders because he has to work over his head all the time. Related Data Previous Rx's ?Medication ?Instructions ?Recorded lidocaine 5 % topical patch 1 patch topical DAILY PRN chest 10/25/24 wall pain #15 ea methylprednisolone 4 mg tablets in 4 mg PO DIRECTED 6 days #21 tabs 10/25/24 a dose pack Allergies Allergy/AdvReac Type Severity Reaction Status Date / Time No Known Allergies Allergy Verified 05/02/20 19:30 [facility] Disclaimer: The information contained in this section may have been updated after the patient was seen, as this information can be updated by other users. Medical History (Updated 10/25/24 @ 13:21 by Allan Sanchez APRN) No significant past medical history Social History Smoking Status: Current every day smoker tobacco type: cigarettes packs per day: 1 second hand exposure: Yes alcohol intake: never substance use type: marijuana current occupational status: employed Travel in the last 8 weeks: None current occupational exposures/hazards: No caffeine: Yes Have you lived/traveled outside [place] in past 30 days?: No Contact w/someone who lives/traveled outside [place] past 30 days?: No Exposure to someone with infectious disease in past 14 days?: No Do you have a fever (greater than 100.4 F or 38 C)?: No Have you tested positive for COVID-19: No Exposed to someone with COVID-19 in past 14 days?: No Do you have a sore throat?: No Do you have a cough?: No Do you have any weakness?: No Do you have any diarrhea?: No Are you experiencing any unusual bleeding?: No Do you have any muscle aches/pain?: No Do you have any abdominal pain?: No Are you experiencing loss of taste or smell?: No ROS Obtained: Yes All systems reviewed & no additional complaints except as documented Constitutional Constitutional: Denies chills and Denies fever(s) Eyes Eyes: Denies eye discharge ENT Ears, Nose, Mouth, and Throat: Denies dizziness, Denies otalgia and Denies sore throat Cardiovascular Cardiovascular: Reports as per HPI and Denies chest pain Respiratory Respiratory: Denies shortness of breath, Denies chest congestion, Denies cough, Denies stridor and Denies wheezing Gastrointestinal Gastrointestingal: Denies nausea or vomiting Musculoskeletal Musculoskeletal: Reports as per HPI Integumentary/Breasts Skin/Breast: Denies redness, Denies rash and Denies wounds Neurologic Neurologic: Denies dizziness and Denies paresthesias Allergic/Immunologic Allergic/Immunologic: Denies wheezing Physical Exam General General appearance: alert and in no apparent distress Head Head exam: atraumatic, normocephalic and normal inspection Eye Eye exam: Present normal appearance, PERRL and EOMI ENT ENT exam: Present normal exam, normal oropharynx, mucous membranes moist, TM's normal bilaterally and normal external ear exam Neck Neck exam: Present normal inspection, full ROM and trachea midline; Absent meningismus or lymphadenopathy Chest Chest inspection: Present symmetric chest wall rise and tenderness Respiratory Respiratory exam: Present normal lung sounds bilaterally; Absent respiratory distress Cardiovascular Cardiovascular exam: Present regular rate and normal rhythm; Absent JVD Abdominal Exam Abdominal exam: Present soft and normal bowel sounds; Absent distention, tenderness or guarding Extremities Exam Extremities exam: Present normal capillary refill; Absent calf tenderness Expanded Upper Extremity Exam Right: Shoulder exam: Present tenderness; Absent full ROM, swelling, abrasion, laceration, ecchymosis, deformity, crepitus, dislocation, erythema or tenderness over AC joint Arm exam: Present normal inspection and full ROM; Absent tenderness Elbow exam: Present normal inspection and full ROM; Absent tenderness, pain w/ pronation/supination or tenderness over radial head Neuromotor exam: Normal wrist extension, thumb opposition, thumb IP flexion, thumb adduction and fingers 2-5 abduction Neurosensory exam: Normal radial nerve and ulnar nerve Vascular exam: Normal capillary refill, radial pulse and ulnar pulse Back Exam Back exam: Present normal inspection; Absent tenderness Neurological Exam Neurological exam: Present alert and oriented X3 Psychiatric Psychiatric exam: Present normal affect and normal mood Skin Skin exam: Present warm, dry, intact and normal color Lymphatic Lymphatic Findings: no adenopathy Medical Decision Making Medical Records Medical records reviewed: No I reviewed the patient's medical records. Screening: Per USPSTF and CDC recommendations, given the prevalence of disease in our region, it is our hospital?s policy to screen for HIV and viral Hepatitis for all patients aged 18 and over and those with ongoing risk factors. Albin Inquiry Pt receiving controlled substance: No
[2024-10-25] MEDS: KETOROLAC 60MG/2ML VIAL 60 MG IM (13:02)
[2024-10-25] MEDS: DEXAMETHASONE 4MG/ML 1ML VIAL 8 MG IM (13:02)
[2024-10-25 13:03] VITALS: BP 117/61; PULSE 82; RESP 17; TEMP 36.8; O2SAT 98
== END 2024-10-25 13:26 | disposition home or self-care (01) ==
PROVIDERS: Emergency Provider Nurse Practitioner Family; PCP Family Medicine
DX: M25.511 Pain in right shoulder (principal); M94.0 Chondrocostal junction syndrome [Tietze]
CPT/HCPCS: 99213; G0381; J1100; J1885